=== PATIENT | female | born 1945 | race Caucasian/White ===

== ENCOUNTER 2016-12-13 18:01 | Emergency (ER) | payer OTHER ==
[~2016-12-13] VITALS: Ht 167.6 cm; Wt 75.3 kg
[~2016-12-13 18:01] MED LIST: ADVAIR 250/501 DISK IH; ADVAIR HFA120 INHALA IH; ARMOUR THYROID; ARMOUR THYROID15 MG PO; CALCIUM +D & M1 EACH PO; CELEXA20 MG PO; DOXYCYCLINE HY100 MG PO; MULTIVITAMIN1 EAC2 PO; OMEGA-3100 MG PO; PAXIL10 MG PO; PROVENTIL HFA6.7 GM IH; ULTRAM50 MG PO
[2016-12-13 19:17] LABS: ADD MIUA? YES; BILIRUBIN NEGATIVE; BLOOD NEGATIVE; COLOR YELLOW ((YELLOW)); GLUCOSE (STRIP) 50; KETONES 20; LEUKOCYTES NEGATIVE; NITRITE NEGATIVE; PROTEIN (STRIP) 30; SPECIFIC GRAVITY 1.025 (1.000-1.030); UROBILINOGEN 0.2 MG/DL (0.2-1.0)
[2016-12-13 19:25] LABS: CHLORIDE 107 mEq/L (99-109); SODIUM 141 mEq/L (136-147)
[2016-12-13 19:26] LABS: EOSINOPHIL (%) 0.7 % (0-5); EOSINOPHIL COUNT 0.1 K/uL (0-0.3); HEMATOCRIT 41.1 % (36.0-46.0); IMMATURE GRANULOCYTE (%) 0.3 % (0.0-0.7); IMMATURE GRANULOCYTE COUNT 0.3 K/uL; LYMPHOCYTE COUNT 0.6 K/uL (1.0-2.8); MCH 29.6 PG (29.0-34.0); MCHC 34.1 G/DL (30.0-36.0); MCV 86.9 FL (83-99); MEAN PLAT.VOLUME 8.9 uM^3 (9.5-12.4); MONOCYTE COUNT 0.4 K/uL (0-0.8); NEUTROPHIL (%) 91.2 % (45-76); NEUTROPHIL COUNT 10.8 K/uL (1.8-6.4); PLATELET COUNT 250 K/uL (156-360); RBC DIS.WIDTH-CV 13.5 % (11.8-14.6); RBC DIS.WIDTH-SD 41.9 % (39-53); RED BLOOD COUNT 4.73 M/uL (3.80-5.20); WHITE BLOOD COUNT 11.8 K/uL (4.1-10.2)
[2016-12-13 19:27] LABS: BACTERIA NONE SEEN /HPF; EPITHELIAL CELLS 1+ /HPF; MUCUS TRACE /LPF; RED BLOOD CELLS 0-5 /HPF (0-5); UCUL ADDED? NO; WHITE BLOOD CELLS 0-5 /HPF (0-5)
[2016-12-13 19:27] LABS: GLUCOSE 155 mg/dL (70-99)
[2016-12-13 19:29] LABS: ANION GAP 13 MEQ/L (2-14)
[2016-12-13 19:31] LABS: ALKALINE PHOSPHATASE 103 IU/L (3-129); GFR ESTIMATE (CALCULATED) > 59 mL/min/
[2016-12-13 19:32] LABS: UREA NITROGEN (BUN) 16 mg/dL (9-23)
[2016-12-13 19:34] LABS: LIPASE 36 U/L (1.0-51.0)
[2016-12-13 20:26] LABS: C DIFF TOXIN NEGATIVE (NEGATIVE)
[2016-12-13 20:32] LABS: PROBE CHECK PASS; SPECIMEN PROCESSING CONTROL PASS
[2016-12-13 23:08] VITALS: BP 147/66
[2016-12-14] MEDS ORDERED: AMLOD-VALSA-HC1 EAC2 PO (15:20)
[2016-12-14] MEDS ORDERED: GLIMEPIRIDE1 MG PO (15:21)
== END 2016-12-13 23:18 | disposition home or self-care (01) ==
LOC: EME 18:01
PROVIDERS: Emergency Medicine
DX: R19.7 Diarrhea, unspecified (principal); E86.0 Dehydration; R51 Headache; R42 Dizziness and giddiness; R50.9 Fever, unspecified; R00.0 Tachycardia, unspecified; D72.829 Elevated white blood cell count, unspecified; Z79.2 Long term (current) use of antibiotics; J45.909 Unspecified asthma, uncomplicated
CPT/HCPCS: 74176; 80053; 81003; 83690; 85025; 87493; 87506; 99281; 99284; J2405; J7030